=== PATIENT | female | born 1975 | race Hispanic/Latino ===

== ENCOUNTER → 2019-03-04 | Outpatient (CLI) | payer BC | END | disposition home or self-care (01) | LOC: RAH 10:38 | PROVIDERS: ATTEND Family Medicine | DX: D24.1 Benign neoplasm of right breast (principal); N63.12 Unspecified lump in the right breast, upper inner quadrant | CPT/HCPCS: 76641 ==

== ENCOUNTER → 2019-03-18 | Outpatient (CLI) | payer BC | END | disposition home or self-care (01) | LOC: RAH 08:09 | PROVIDERS: ATTEND Family Medicine | DX: N63.10 Unspecified lump in the right breast, unspecified quadrant (principal); N63.20 Unspecified lump in the left breast, unspecified quadrant | CPT/HCPCS: 77066 ==

== ENCOUNTER 2021-02-24 07:28 | Day surgery (SDC) | payer BC ==
[2021-02-23 11:13] VITALS: BP 164/86
[2021-02-24] VITALS (16 sets, daily range): BP systolic 117–150; BP diastolic 74–94
[~2021-02-24] VITALS: Ht 160 cm; Wt 89.5 kg
[~2021-02-24 07:28] MED LIST: NAPR220C62 PO
[2021-02-24] MEDS ORDERED: CALDOLOR 800MG+NS 250ML 250 ML IV ONE (07:39)
[2021-02-24] MEDS ORDERED: CEFAZOLIN SODIUM 1 GM VIAL ONE (07:52)
[2021-02-24] MEDS ORDERED: LACTATED RINGERS 1000ML 1,000 ML IV ONE (07:52)
[2021-02-24 08:05] LABS: BASOPHILS % (AUTO) 0.8 % (0.0-5.0); EOSINOPHILS % (AUTO) 2.4 % (0.0-8.0); HEMATOCRIT 33.1 % (36-48); LYMPHOCYTES % (AUTO) 32.1 % (21.0-51.0); MEAN CORPUSCULAR HEMOGLOBIN 30.6 pg (27.0-33.0); MEAN CORPUSCULAR HGB CONC 32.9 g/dL (32.0-36.0); MONOCYTES % (AUTO) 5.8 % (3.0-13.0); NEUTROPHILS % (AUTO) 58.8 % (40.0-77.0); PLATELET COUNT (AUTO) 321 K/uL (130-400); RED BLOOD CELL COUNT(AUTO) 3.56 MIL/uL (4.00-5.50); RED CELL DISTRIBUTION WIDTH 13.1 % (11.0-15.5); WHITE BLOOD COUNT (AUTO) 7.2 K/uL (4.8-10.8)
[2021-02-24] MEDS ORDERED: ACET-66 PO (09:30)
[2021-02-24] MEDS ORDERED: FAMOTIDINE 20MG VIAL IV ONE (10:25)
[2021-02-24] MEDS ORDERED: MIDAZOLAM HCL 1 MG/ML 2ML VIAL ONE (10:48)
[2021-02-24] MEDS ORDERED: LIDOCAINE PF 100MG/5ML (2%) SYRINGE 5ML ONE (10:48)
[2021-02-24] MEDS ORDERED: PROPOFOL 10 MG/ML 20ML VIAL IV ONE (10:49)
[2021-02-24] MEDS ORDERED: FENTANYL CITRATE PF 50 MCG/1 ML 2ML VIAL ONE ×2 (10:55→10:57)
[2021-02-24] MEDS ORDERED: DEXAMETHASONE SOD PHOSPHATE 4 MG/ML 1ML VIAL ONE (11:15)
[2021-02-24] MEDS ORDERED: ONDANSETRON 4MG INJ ONE (11:15)
[2021-02-24] MEDS ORDERED: MEPERIDINE-PF 25 MG/ML SYG ONE ×2 (11:39→11:49)
== END 2021-02-24 13:10 | disposition home or self-care (01) ==
LOC: DAH 07:28
PROVIDERS: ATTEND Obstetrics & Gynecology
DX: N92.1 Excessive and frequent menstruation with irregular cycle (principal); Z20.822 Contact with and (suspected) exposure to COVID-19; N81.4 Uterovaginal prolapse, unspecified; I10 Essential (primary) hypertension; E66.9 Obesity, unspecified; K21.9 Gastro-esophageal reflux disease without esophagitis; F17.290 Nicotine dependence, other tobacco product, uncomplicated; Z79.01 Long term (current) use of anticoagulants; Z79.899 Other long term (current) drug therapy; Z98.890 Other specified postprocedural states; Z98.891 History of uterine scar from previous surgery; Z90.49 Acquired absence of other specified parts of digestive tract; Z90.89 Acquired absence of other organs; Z68.35 Body mass index [BMI] 35.0-35.9, adult
CPT/HCPCS: 36415; 58563; 84703; 85025; 86850; 86900; 86901; 87635; A4215; A4221; A4222; A4223; A4351; A4355; A4510; A4600; A4663; A6260; C9803; J0690; J1100; J1741; J2001; J2175 ×2; J2250; J2405; J2704; J3010 ×2; J3490; J7030 ×2; J7120

== ENCOUNTER 2023-11-14 17:16 | Emergency (ER) | payer BC ==
[~2023-11-14] VITALS: Ht 160 cm; Wt 90.7 kg
[~2023-11-14 17:16] MED LIST changes: +ACET-66 PO
[2023-11-14] MEDS: TRIAMCINOLONE ACETONIDE 40 MG/ML 1ML VIAL IM STA (18:03)
[2023-11-14] MEDS: ORPHENADRINE CITRATE 30 MG/ML ML IM STA (18:03)
[2023-11-14] MEDS: KETOROLAC 15MG/ML VIAL (15MG/ML) IM STA (18:03)
[2023-11-14] MEDS ORDERED: KETO10 PO (18:46)
[2023-11-14] MEDS ORDERED: CYCL10TA16 PO (18:46)
[2023-11-14 18:53] VITALS: BP 144/56; PULSE 75; RESP 16; O2SAT 98
== END 2023-11-14 18:55 | disposition home or self-care (01) ==
LOC: EDH 17:16
DX: M62.830 Muscle spasm of back (principal); E78.00 Pure hypercholesterolemia, unspecified; I10 Essential (primary) hypertension; Z90.49 Acquired absence of other specified parts of digestive tract; Z90.89 Acquired absence of other organs; Z98.890 Other specified postprocedural states; Z88.8 Allergy status to other drugs, medicaments and biological substances
CPT/HCPCS: 99284; 96372 ×3; J3301; J1885; J2360

== ENCOUNTER 2024-01-30 20:07 | Inpatient (IN) | payer BC ==
[~2024-01-30] VITALS: Ht 162.6 cm; Wt 92.8 kg
[~2024-01-30 20:07] MED LIST changes: +CYCL10TA16 PO; +KETO10 PO
[2024-01-30 21:54] LABS: APPEARANCE,URINE CLOUDY (CLEAR); BILIRUBIN,URINE NEGATIVE (NEGATIVE); COLOR,URINE YELLOW (YELLOW); GLUCOSE, URINE (UA) NEGATIVE (NEGATIVE); KETONES,URINE 5 mg/dL (NEGATIVE); LEUKOCYTE ESTERASE ,URINE 500 Leu/uL (NEGATIVE); NITRATE,URINE NEGATIVE (NEGATIVE); OCCULT BLOOD,URINE MODERATE (NEGATIVE); PH,URINE 5.5 (5.0-8.0); PROTEIN,URINE 50 mg/dL (NEGATIVE); UROBILINOGEN,URINE 0.2 mg/dL (0.2-1.0)
[2024-01-30 21:56] LABS: ADD UA MICROSCOPIC YES
[2024-01-30 21:58] LABS: BACTERIA,URINE RARE /HPF (None Seen); HCG,QUALITATIVE URINE NEGATIVE (NEGATIVE); MUCUS,URINE FEW LPF (None Seen); OTHER CASTS, URINE 3 /LPF (None Seen); RBC,URINE 26-50 /HPF (0-1); SQUAMOUS EPITHELIAL CELL,UR FEW /HPF (0-2)
[2024-01-30 21:58] LABS: BASOPHILS # (AUTO) 0.05 K/uL (0.00-0.20); BASOPHILS % (AUTO) 0.4 % (0.0-5.0); EOSINOPHILS # (AUTO) 0.08 K/uL (0.00-0.70); EOSINOPHILS % (AUTO) 0.6 % (0.0-8.0); HEMATOCRIT 48.7 % (36-48); IMMATURE GRANULOCYTE ABSOLUTE 0.04 K/uL (0-1); LYMPHOCYTES # (AUTO) 0.6 K/uL (1.0-4.8); LYMPHOCYTES % (AUTO) 5.1 % (21.0-51.0); MEAN CORPUSCULAR HEMOGLOBIN 30.5 pg (27.0-33.0); MEAN CORPUSCULAR HGB CONC 33.3 g/dL (32.0-36.0); MEAN CORPUSCULAR VOLUME 91.5 fL (79-99); MONOCYTES # (AUTO) 0.4 K/uL (0.1-1.0); MONOCYTES % (AUTO) 3.1 % (3.0-13.0); NEUTROPHILS # (AUTO) 11.3 K/uL (1.8-7.7); NEUTROPHILS % (AUTO) 90.5 % (40.0-77.0); PLATELET COUNT (AUTO) 305 K/uL (130-400); RED BLOOD CELL COUNT(AUTO) 5.32 MIL/uL (4.00-5.50); RED CELL DISTRIBUTION WIDTH 13.5 % (11.0-15.5); WHITE BLOOD COUNT (AUTO) 12.5 K/uL (4.8-10.8)
[2024-01-30 22:08] LABS: POTASSIUM 3.4 mmol/L (3.5-5.1)
[2024-01-30] MEDS: 0.9%NACL 1000ML 2,721 ML IV ONE (22:11)
[2024-01-30] MEDS: ondanSETRON 4MG INJ IVP ONE (22:12)
[2024-01-30] MEDS: PANTOPrazole 40 MG/VIAL IVP ONE (22:12)
[2024-01-30] MEDS: LACTATED RINGERS 1000ML 1,000 ML IV ONE (22:13)
[2024-01-30 22:31] VITALS: TEMP 100.2
[2024-01-30] MEDS: acetaMINOPHEN 325 MG TAB PO ONE (22:31)
[2024-01-30] MEDS: CEFTRIAXONE 2GM VIAL IVPB ONE (22:51)
[2024-01-30] MEDS: ORPHENADRINE 60MG/2ML IM ONE (23:51)
[2024-01-31] VITALS (8 sets, daily range): BP systolic 129–154; BP diastolic 78–90; PULSE 68–95; RESP 18–20; TEMP 97.6–99.8; O2SAT 97–100
[2024-01-31] MEDS ORDERED: ondanSETRON 4MG INJ IV PRN
[2024-01-31] MEDS ORDERED: NITROGLYCERIN 0.4 MG SL TAB SL PRN
[2024-01-31] MEDS: 0.9%NACL 1000ML 1,000 ML IV SCH
[2024-01-31] MEDS ORDERED: HYDR12.54 PO (01:59)
[2024-01-31] MEDS ORDERED: TRAM100T40 PO (01:59)
[2024-01-31] MEDS ORDERED: MAGNESIUM 2GM PREMIX 50ML 50 ML IV PRN (03:00)
[2024-01-31] MEDS ORDERED: PoTASSium chloRIDE 20MEQ/100ML 100 ML IV PRN (03:00)
[2024-01-31] MEDS ORDERED: PoTASSium chl 10% ELIXIR 20MEQ 20 MEQ/15 ML UDCUP PO PRN (03:00)
[2024-01-31 05:42] LABS: BASOPHILS # (AUTO) 0.03 K/uL (0.00-0.20); BASOPHILS % (AUTO) 0.4 % (0.0-5.0); EOSINOPHILS # (AUTO) 0.06 K/uL (0.00-0.70); EOSINOPHILS % (AUTO) 0.7 % (0.0-8.0); HEMATOCRIT 40.8 % (36-48); IMMATURE GRANULOCYTE ABSOLUTE 0.02 K/uL (0-1); LYMPHOCYTES % (AUTO) 11.9 % (21.0-51.0); MEAN CORPUSCULAR HEMOGLOBIN 30.4 pg (27.0-33.0); MEAN CORPUSCULAR HGB CONC 32.6 g/dL (32.0-36.0); MEAN CORPUSCULAR VOLUME 93.2 fL (79-99); MONOCYTES # (AUTO) 0.5 K/uL (0.1-1.0); MONOCYTES % (AUTO) 5.6 % (3.0-13.0); NEUTROPHILS # (AUTO) 6.7 K/uL (1.8-7.7); NEUTROPHILS % (AUTO) 81.2 % (40.0-77.0); PLATELET COUNT (AUTO) 259 K/uL (130-400); RED BLOOD CELL COUNT(AUTO) 4.38 MIL/uL (4.00-5.50); RED CELL DISTRIBUTION WIDTH 13.6 % (11.0-15.5); WHITE BLOOD COUNT (AUTO) 8.2 K/uL (4.8-10.8)
[2024-01-31 05:52] LABS: HEMOGLOBIN A1C 5.2 % (4.0-6.0)
[2024-01-31 05:56] LABS: BILIRUBIN,TOTAL 0.4 mg/dL (0.2-1.0); CREATININE 0.9 mg/dL (0.5-1.0); MAGNESIUM 1.7 mg/dL (1.80-2.40); POTASSIUM 3.6 mmol/L (3.5-5.1); TOTAL PROTEIN, SERUM 6.8 g/dL (6.0-8.3)
[2024-01-31] MEDS: ketOROlac 15MG/ML VIAL (15MG/ML) IV ONE (06:19)
[2024-01-31] MEDS: PoTASSium chloRIDE 20MEQ ER 20 MEQ ERTAB PO PRN (06:19)
[2024-01-31] MEDS ORDERED: cefTRIAXone 1G VIAL 1 GM in 0.9%NACL 50ML 50 ML IV SCH (09:00)
[2024-01-31] MEDS: ENOXAPARIN SODIUM 30 MG/0.3 ML SQ SCH (09:38)
[2024-01-31] MEDS: FAMOTIDINE 20MG TAB PO SCH (09:38)
[2024-01-31] MEDS: GABAPENTIN 300 MG CAPSULE PO SCH (13:47)
[2024-01-31] MEDS: cefTRIAXone 1G VIAL IVPB SCH (21:59)
[2024-01-31] MEDS: LIDOCAINE 4% ADH..PATCH TP SCH (22:03)
[2024-02-01] VITALS: BP_SYST 121; BP_SYST 138; BP_DIAS 59; BP_DIAS 71; PULSE 67; PULSE 83; RESP 18; TEMP 99.2
[2024-02-01 04:00] VITALS: BP 142/75; PULSE 81; RESP 18; TEMP 98.8
[2024-02-01 05:06] LABS: BASOPHILS # (AUTO) 0.03 K/uL (0.00-0.20); BASOPHILS % (AUTO) 0.4 % (0.0-5.0); EOSINOPHILS # (AUTO) 0.22 K/uL (0.00-0.70); EOSINOPHILS % (AUTO) 2.8 % (0.0-8.0); HEMATOCRIT 39.1 % (36-48); IMMATURE GRANULOCYTE ABSOLUTE 0.01 K/uL (0-1); LYMPHOCYTES # (AUTO) 1.4 K/uL (1.0-4.8); LYMPHOCYTES % (AUTO) 18.2 % (21.0-51.0); MEAN CORPUSCULAR HEMOGLOBIN 30.4 pg (27.0-33.0); MEAN CORPUSCULAR HGB CONC 32.2 g/dL (32.0-36.0); MEAN CORPUSCULAR VOLUME 94.4 fL (79-99); MONOCYTES # (AUTO) 0.6 K/uL (0.1-1.0); MONOCYTES % (AUTO) 7.8 % (3.0-13.0); NEUTROPHILS # (AUTO) 5.5 K/uL (1.8-7.7); NEUTROPHILS % (AUTO) 70.7 % (40.0-77.0); PLATELET COUNT (AUTO) 263 K/uL (130-400); RED BLOOD CELL COUNT(AUTO) 4.14 MIL/uL (4.00-5.50); RED CELL DISTRIBUTION WIDTH 13.7 % (11.0-15.5); WHITE BLOOD COUNT (AUTO) 7.8 K/uL (4.8-10.8)
[2024-02-01 05:16] LABS: CREATININE 0.8 mg/dL (0.5-1.0); MAGNESIUM 1.6 mg/dL (1.80-2.40); PHOSPHORUS 1.8 mg/dL (2.5-4.9); POTASSIUM 3.4 mmol/L (3.5-5.1)
[2024-02-01 08:00] VITALS: O2SAT 100
[2024-02-01 09:03] VITALS: BP 135/79; PULSE 67; RESP 18; TEMP 98.3
[2024-02-01 11:25] VITALS: BP 134/71; PULSE 69; RESP 18; TEMP 98.2
[2024-02-01] MEDS: acetaMINOPHEN 325 MG TAB PO PRN (13:08)
[2024-02-03 16:08] LABS: C DIFFICILE TOXIN A/B Not Detected (Not Detected); ENTEROAGGREGATIVE ECOLI Not Detected (Not Detected); GIARDIA LAMBLIA Not Detected (Not Detected); PLESIOMONAS SHIGELOIDES Not Detected (Not Detected); SAPOVIRUS Not Detected (Not Detected); SHIGELLA/ENTEROINVASIVE E COLI Not Detected (Not Detected); VIBRIO Not Detected (Not Detected); VIBRIO CHOLERAE Not Detected (Not Detected)
== END 2024-02-01 14:40 | disposition home or self-care (01) | DRG 392 ==
LOC: EDH 20:07 → OBSVTOIN 23:56 → EDHIP 23:56 → 3AH 01-31 00:31
PROVIDERS: ADMIT Internal Medicine; ATTEND Internal Medicine
DX: K52.9 Noninfective gastroenteritis and colitis, unspecified (principal); E86.0 Dehydration; E03.9 Hypothyroidism, unspecified; E66.9 Obesity, unspecified; E78.00 Pure hypercholesterolemia, unspecified; E87.6 Hypokalemia; I10 Essential (primary) hypertension; M54.30 Sciatica, unspecified side; Z82.49 Family history of ischemic heart disease and other diseases of the circulatory system; Z87.891 Personal history of nicotine dependence; Z90.49 Acquired absence of other specified parts of digestive tract; Z88.8 Allergy status to other drugs, medicaments and biological substances; Z68.35 Body mass index [BMI] 35.0-35.9, adult
CPT/HCPCS: 36415; 71045; 80048; 80053; 80061; 81001; 81025; 82550; 83036; 83605; 83690; 83735; 84100; 84145; 84484; 85025; 87040; 87086; 87324; 87507; 93005; 96361; 96365; 96375; G0378; J0696; J1650; J1885; J2405; J2470; J7030; J7120; J2360